=== PATIENT | male | born 1960 | race African-American/Black ===

== ENCOUNTER 2021-05-30 10:19 | Emergency (ER) | payer MEDICAID, OTHER ==
[~2021-05-30] VITALS: Ht 167.6 cm; Wt 65.8 kg
[2021-05-30 11:36] LABS: Basophils # (auto) 0.1 10 ^3/uL (0-0.2); Basophils % (auto) 1.1 % (0.0-2.0); Eosinophils # (auto) 0.2 10 ^3/uL (0-0.8); Eosinophils % (auto) 2.9 % (0.0-7.0); Hematocrit 42.1 % (41.0-53.0); Hemoglobin 14.3 g/dL (13.5-17.5); Lymphocytes # (auto) 3.1 10 ^3/uL (0.4-5.4); Mean Corpuscular Hemoglobin 28.9 pg (28.0-32.0); Mean Corpuscular Volume 84.9 fL (80.0-100.0); Monocytes # (auto) 0.6 10 ^3/uL (0-1.3); Monocytes % (auto) 9.5 % (0.0-12.0); Neutrophils # (auto) 2.7 10 ^3/uL (1.6-8.6); Neutrophils % (auto) 40.5 % (37.0-80.0); Nucleated Red Blood Cells % 0.3 %; Red Blood Cells 4.95 10^6/uL (4.5-5.90); Red Cell Distribution Width 14.5 % (11.8-14.3); White Blood Cell 6.7 10^3/uL (4.4-10.8)
[2021-05-30 11:55] LABS: Albumin 3.7 g/dL (3.4-5.0); Anion Gap 6 (5-15); Blood Urea Nitrogen 19 mg/dL (7-18); Calcium 8.6 mg/dL (8.5-10.1); Carbon Dioxide 25 mmol/L (21-32); Chloride 113 mmol/L (98-107); Glucose 110 mg/dL (74-106); Sodium 144 mmol/L (136-145)
[2021-05-30 12:00] LABS: Alanine Aminotransferase 18 U/L (16-61); Alkaline Phosphatase 104 U/L (45-117); Aspartate Aminotransferase 15 U/L (15-37); BUN/Creatinine Ratio 15.4; Bilirubin, Total 0.3 mg/dL (0.2-1.0); GFR African American 77 mL/min; GFR Non-African American 63 mL/min; Total Protein 7.6 g/dL (6.4-8.2)
[2021-05-30 12:18] LABS: Urine Bacteria NONE SEEN /hpf (None Seen); Urine Blood TRACE /uL (Negative); Urine Hyaline Cast FEW /lpf (0 - 2); Urine Mucus FEW (None Seen); Urine Specific Gravity 1.029 (1.001-1.035); Urine WBC 1 /hpf (0 - 3)
[2021-05-30 13:00] VITALS: BP 144/73
== END 2021-05-30 13:21 | disposition home or self-care (01) ==
LOC: ER 10:19
DX: D64.9 Anemia, unspecified (principal); E78.5 Hyperlipidemia, unspecified; I10 Essential (primary) hypertension
CPT/HCPCS: 36415; 71046; 80053; 81001; 84484; 85025; 93005

== ENCOUNTER 2021-11-03 22:21 | Inpatient (IN) | payer MEDICAID ==
[~2021-11-03] VITALS: Ht 167.6 cm; Wt 116.4 kg
[2021-11-03 23:03] LABS: Basophils # (auto) 0.1 10 ^3/uL (0-0.2); Basophils % (auto) 0.8 % (0.0-2.0); Eosinophils # (auto) 0.3 10 ^3/uL (0-0.8); Eosinophils % (auto) 3.6 % (0.0-7.0); Hematocrit 40.4 % (41.0-53.0); Hemoglobin 13.5 g/dL (13.5-17.5); Lymphocytes # (auto) 2.3 10 ^3/uL (0.4-5.4); Mean Corpuscular Hemoglobin 27.7 pg (28.0-32.0); Mean Corpuscular Hgb Conc. 33.4 g/dL (32.0-36.0); Mean Corpuscular Volume 82.9 fL (80.0-100.0); Monocytes # (auto) 1.1 10 ^3/uL (0-1.3); Neutrophils # (auto) 4.5 10 ^3/uL (1.6-8.6); Neutrophils % (auto) 54.6 % (37.0-80.0); Nucleated Red Blood Cells % 0.1 %; Red Blood Cells 4.87 10^6/uL (4.5-5.90); Red Cell Distribution Width 15.2 % (11.8-14.3); White Blood Cell 8.1 10^3/uL (4.4-10.8)
[2021-11-03 23:17] LABS: INR 1.05 (0.9-1.15); Partial Thromboplastin Time 27.3 sec (23.6-33.0)
[2021-11-03 23:20] LABS: Albumin 2.8 g/dL (3.4-5.0); Calcium 8.4 mg/dL (8.5-10.1); Potassium 4.7 mmol/L (3.5-5.1)
[2021-11-03 23:27] LABS: BUN/Creatinine Ratio 12.6; Bilirubin, Total 0.5 mg/dL (0.2-1.0); Total Protein 8.1 g/dL (6.4-8.2)
[2021-11-04] VITALS (8 sets, daily range): BP systolic 113–132; BP diastolic 62–82
[2021-11-04] MEDS ORDERED: FUROSEMIDE 40 MG/4 ML VIAL IV ONE
[2021-11-04] MEDS ORDERED: ACETAMINOPHEN 325 MG TAB PO PRN (01:30)
[2021-11-04] MEDS ORDERED: ASPirin 325 MG TAB PO ONE (01:30)
[2021-11-04] MEDS ORDERED: HYDROcodone-ACET 5/325MG TAB PO PRN (01:30)
[2021-11-04] MEDS ORDERED: ONDANSETRON HCL 4 MG/2 ML VIAL IV PRN (01:30)
[2021-11-04] MEDS ORDERED: hydrALAZINE HCL 10 MG TAB PO PRN (01:30)
[2021-11-04 06:37] LABS: Basophils # (auto) 0.1 10 ^3/uL (0-0.2); Basophils % (auto) 1.3 % (0.0-2.0); Eosinophils # (auto) 0.4 10 ^3/uL (0-0.8); Eosinophils % (auto) 4.6 % (0.0-7.0); Hematocrit 42.3 % (41.0-53.0); Hemoglobin 13.8 g/dL (13.5-17.5); Lymphocytes % (auto) 33.5 % (10.0-50.0); Mean Corpuscular Hemoglobin 27.1 pg (28.0-32.0); Mean Corpuscular Hgb Conc. 32.6 g/dL (32.0-36.0); Mean Corpuscular Volume 83.3 fL (80.0-100.0); Monocytes # (auto) 1.1 10 ^3/uL (0-1.3); Neutrophils # (auto) 4.2 10 ^3/uL (1.6-8.6); Neutrophils % (auto) 47.6 % (37.0-80.0); Nucleated Red Blood Cells % 0.4 %; Red Blood Cells 5.08 10^6/uL (4.5-5.90); Red Cell Distribution Width 15.3 % (11.8-14.3); White Blood Cell 8.8 10^3/uL (4.4-10.8)
[2021-11-04 06:44] LABS: Potassium 4.9 mmol/L (3.5-5.1)
[2021-11-04 06:56] LABS: Albumin 2.8 g/dL (3.4-5.0); BUN/Creatinine Ratio 12.9; Bilirubin, Total 0.4 mg/dL (0.2-1.0); Calcium 8.4 mg/dL (8.5-10.1); Total Protein 8.1 g/dL (6.4-8.2)
[2021-11-04] MEDS ORDERED: FUROSEMIDE 40 MG/4 ML VIAL IV SCH (10:00)
[2021-11-04] MEDS ORDERED: REMDESIVIR PER PHARMACY 0 ML IV SCH (14:45)
[2021-11-04] MEDS ORDERED: ACETAMINOPHEN 500 MG TAB PO PRN (14:45)
[2021-11-04] MEDS ORDERED: ATO40T PO (16:25)
[2021-11-04] MEDS ORDERED: DOCU100T15 PO (16:25)
[2021-11-04] MEDS ORDERED: METF-370 PO (16:25)
[2021-11-04] MEDS ORDERED: CARV12.544 PO (16:25)
[2021-11-04] MEDS ORDERED: ASPI-543 PO (16:25)
[2021-11-04] MEDS ORDERED: LISI-716 PO (16:25)
[2021-11-04] MEDS ORDERED: REMDESIVIR 200 MG in NS 210ml LOADING DOSE ADULT IV ONE (16:30)
[2021-11-04 17:05] LABS: Magnesium 2.7 mg/dL (1.6-2.6)
[2021-11-04 17:13] LABS: CRP High Sensitivity 13.9 mg/dL (< 0.3)
[2021-11-04 17:21] LABS: Thyroid Stimulating Hormone 0.92 uIU/mL (0.358-3.74)
[2021-11-04] MEDS: BUDESONIDE (INHALATION) 180 MCG IH IN SCH (18:31)
[2021-11-04] MEDS: ALBUTEROL SULF HFA 90MCG INH 200DOSE IN PRN (20:21)
[2021-11-04] MEDS: POTASSIUM CHLORIDE 8 MEQ TAB PO SCH (22:00)
[2021-11-04] MEDS: FUROSEMIDE 40 MG/4 ML VIAL IV SCH (22:07)
[2021-11-04] MEDS: DOXYCYCLINE 100MG/250ML 250 ML IV SCH (22:08)
[2021-11-04] MEDS: ENOXAPARIN SOD 40 MG/0.4 ML SYRINGE SC SCH (22:08)
[2021-11-05 05:07] VITALS: BP 103/52
[2021-11-05] MEDS: BUDESONIDE (INHALATION) 180 MCG IH IN SCH ×2 (06:10→22:00)
[2021-11-05] MEDS: ALBUTEROL SULF HFA 90MCG INH 200DOSE IN PRN ×2 (06:10→22:32)
[2021-11-05 06:53] LABS: Basophils # (auto) 0.1 10 ^3/uL (0-0.2); Basophils % (auto) 0.7 % (0.0-2.0); Eosinophils # (auto) 0.4 10 ^3/uL (0-0.8); Eosinophils % (auto) 6.2 % (0.0-7.0); Hematocrit 43.1 % (41.0-53.0); Hemoglobin 14.2 g/dL (13.5-17.5); Lymphocytes # (auto) 2.1 10 ^3/uL (0.4-5.4); Lymphocytes % (auto) 30.4 % (10.0-50.0); Mean Corpuscular Hemoglobin 27.3 pg (28.0-32.0); Mean Corpuscular Volume 82.8 fL (80.0-100.0); Monocytes # (auto) 0.7 10 ^3/uL (0-1.3); Monocytes % (auto) 10.9 % (0.0-12.0); Neutrophils # (auto) 3.5 10 ^3/uL (1.6-8.6); Neutrophils % (auto) 51.8 % (37.0-80.0); Nucleated Red Blood Cells % 0.2 %; Red Cell Distribution Width 15.5 % (11.8-14.3); White Blood Cell 6.8 10^3/uL (4.4-10.8)
[2021-11-05 07:11] LABS: Albumin 2.9 g/dL (3.4-5.0); Calcium 8.7 mg/dL (8.5-10.1); Potassium 4.5 mmol/L (3.5-5.1)
[2021-11-05 07:18] LABS: BUN/Creatinine Ratio 15.7; Bilirubin, Total 0.6 mg/dL (0.2-1.0); Total Protein 8.1 g/dL (6.4-8.2)
[2021-11-05 09:00] VITALS: BP 115/63
[2021-11-05] MEDS: DexAMETHasone SOD PHOS 10MG/1ML VIAL INJ IV SCH (09:40)
[2021-11-05] MEDS: FUROSEMIDE 40 MG/4 ML VIAL IV SCH ×2 (09:41→23:28)
[2021-11-05] MEDS: DOXYCYCLINE 100MG/250ML 250 ML IV SCH ×2 (09:41→23:29)
[2021-11-05] MEDS: ASCORBIC ACID 1,000 MG TAB PO SCH (09:42)
[2021-11-05] MEDS: ENOXAPARIN SOD 40 MG/0.4 ML SYRINGE SC SCH ×2 (09:42→23:29)
[2021-11-05] MEDS: CHOLECALCIFEROL (VITD3) 2,000 UNIT CAP/TAB PO SCH (09:42)
[2021-11-05] MEDS: ZINC SULFATE 220mg CAP or TAB PO SCH (09:42)
[2021-11-05] MEDS: POTASSIUM CHLORIDE 8 MEQ TAB PO SCH ×2 (09:43→23:29)
[2021-11-05] MEDS: IVERMECTIN 3 MG TAB PO SCH (11:33)
[2021-11-05 12:40] VITALS: BP 111/56
[2021-11-05] MEDS: REMDESIVIR 100mg 100 MG in SODIUM CHL 0.9% 230 ML IV SCH (14:53)
[2021-11-05 16:39] VITALS: BP 126/77
[2021-11-05 21:07] VITALS: BP 123/64
[2021-11-06 04:40] VITALS: BP 127/76
[2021-11-06 06:03] LABS: Potassium 5.1 mmol/L (3.5-5.1)
[2021-11-06 06:07] LABS: Albumin 2.8 g/dL (3.4-5.0); BUN/Creatinine Ratio 22.7; Calcium 8.7 mg/dL (8.5-10.1)
[2021-11-06 06:09] LABS: Bilirubin, Total 0.4 mg/dL (0.2-1.0); Total Protein 7.3 g/dL (6.4-8.2)
[2021-11-06] MEDS: ALBUTEROL SULF HFA 90MCG INH 200DOSE IN PRN ×2 (06:12→21:40)
[2021-11-06] MEDS: BUDESONIDE (INHALATION) 180 MCG IH IN SCH ×2 (06:12→21:40)
[2021-11-06 09:00] VITALS: BP 139/88
[2021-11-06] MEDS: IVERMECTIN 3 MG TAB PO SCH (10:00)
[2021-11-06] MEDS: DexAMETHasone SOD PHOS 10MG/1ML VIAL INJ IV SCH (10:21)
[2021-11-06] MEDS: FUROSEMIDE 40 MG/4 ML VIAL IV SCH ×2 (10:21→21:30)
[2021-11-06] MEDS: DOXYCYCLINE 100MG/250ML 250 ML IV SCH ×2 (10:22→21:30)
[2021-11-06] MEDS: ASCORBIC ACID 1,000 MG TAB PO SCH (10:22)
[2021-11-06] MEDS: POTASSIUM CHLORIDE 8 MEQ TAB PO SCH ×2 (10:22→21:30)
[2021-11-06] MEDS: CHOLECALCIFEROL (VITD3) 2,000 UNIT CAP/TAB PO SCH (10:22)
[2021-11-06] MEDS: ZINC SULFATE 220mg CAP or TAB PO SCH (10:22)
[2021-11-06] MEDS: ENOXAPARIN SOD 40 MG/0.4 ML SYRINGE SC SCH ×2 (10:23→21:31)
[2021-11-06 13:00] VITALS: BP 120/59
[2021-11-06] MEDS: REMDESIVIR 100mg 100 MG in SODIUM CHL 0.9% 230 ML IV SCH (14:58)
[2021-11-06 16:00] VITALS: BP 112/73
[2021-11-06] MEDS ORDERED: IOHEXOL 350 MG/ML 100ML IJ ONE (16:04)
[2021-11-06 22:00] VITALS: BP 109/69
[2021-11-07 05:00] VITALS: BP 123/83
[2021-11-07] MEDS: ALBUTEROL SULF HFA 90MCG INH 200DOSE IN PRN ×2 (05:51→20:51)
[2021-11-07] MEDS: BUDESONIDE (INHALATION) 180 MCG IH IN SCH ×2 (05:51→18:56)
[2021-11-07 06:28] LABS: Albumin 2.8 g/dL (3.4-5.0); BUN/Creatinine Ratio 28.4; Calcium 8.6 mg/dL (8.5-10.1)
[2021-11-07 06:31] LABS: Bilirubin, Total 0.4 mg/dL (0.2-1.0); Total Protein 7.1 g/dL (6.4-8.2)
[2021-11-07 07:56] LABS: Potassium 5.6 mmol/L (3.5-5.1)
[2021-11-07 09:00] VITALS: BP 117/68
[2021-11-07] MEDS: POTASSIUM CHLORIDE 8 MEQ TAB PO SCH ×2 (09:28→21:05)
[2021-11-07] MEDS: ZINC SULFATE 220mg CAP or TAB PO SCH (09:57)
[2021-11-07] MEDS: FUROSEMIDE 40 MG/4 ML VIAL IV SCH ×2 (09:57→22:48)
[2021-11-07] MEDS: DOXYCYCLINE 100MG/250ML 250 ML IV SCH ×2 (09:57→21:05)
[2021-11-07] MEDS: DexAMETHasone SOD PHOS 10MG/1ML VIAL INJ IV SCH (09:57)
[2021-11-07] MEDS: ENOXAPARIN SOD 40 MG/0.4 ML SYRINGE SC SCH ×2 (09:58→21:06)
[2021-11-07] MEDS: IVERMECTIN 3 MG TAB PO SCH (09:58)
[2021-11-07] MEDS: CHOLECALCIFEROL (VITD3) 2,000 UNIT CAP/TAB PO SCH (09:58)
[2021-11-07] MEDS: ASCORBIC ACID 1,000 MG TAB PO SCH (09:58)
[2021-11-07 13:00] VITALS: BP 117/79
[2021-11-07] MEDS: REMDESIVIR 100mg 100 MG in SODIUM CHL 0.9% 230 ML IV SCH (15:26)
[2021-11-07 17:03] VITALS: BP 103/63
[2021-11-07 22:00] VITALS: BP 128/79
[2021-11-08 05:00] VITALS: BP 120/69
[2021-11-08] MEDS: BUDESONIDE (INHALATION) 180 MCG IH IN SCH ×2 (06:24→22:28)
[2021-11-08] MEDS: ALBUTEROL SULF HFA 90MCG INH 200DOSE IN PRN (06:24)
[2021-11-08 07:20] LABS: Basophils # (auto) 0 10 ^3/uL (0-0.2); Basophils % (auto) 0.3 % (0.0-2.0); Eosinophils # (auto) 0 10 ^3/uL (0-0.8); Eosinophils % (auto) 0.3 % (0.0-7.0); Hematocrit 44.3 % (41.0-53.0); Hemoglobin 14.6 g/dL (13.5-17.5); Mean Corpuscular Hemoglobin 27.4 pg (28.0-32.0); Mean Corpuscular Hgb Conc. 32.9 g/dL (32.0-36.0); Mean Corpuscular Volume 83.3 fL (80.0-100.0); Monocytes # (auto) 1.5 10 ^3/uL (0-1.3); Monocytes % (auto) 12.6 % (0.0-12.0); Neutrophils # (auto) 7.5 10 ^3/uL (1.6-8.6); Neutrophils % (auto) 61.8 % (37.0-80.0); Nucleated Red Blood Cells % 0.1 %; Red Blood Cells 5.32 10^6/uL (4.5-5.90); Red Cell Distribution Width 14.9 % (11.8-14.3); White Blood Cell 12.1 10^3/uL (4.4-10.8)
[2021-11-08 07:28] LABS: Albumin 3.1 g/dL (3.4-5.0); Calcium 8.6 mg/dL (8.5-10.1); Potassium 5.2 mmol/L (3.5-5.1)
[2021-11-08 07:34] LABS: BUN/Creatinine Ratio 26.9; Bilirubin, Total 0.4 mg/dL (0.2-1.0); Total Protein 7.4 g/dL (6.4-8.2)
[2021-11-08 09:27] VITALS: BP 100/71
[2021-11-08] MEDS: FUROSEMIDE 40 MG/4 ML VIAL IV SCH ×2 (09:41→22:06)
[2021-11-08] MEDS: ZINC SULFATE 220mg CAP or TAB PO SCH (09:42)
[2021-11-08] MEDS: IVERMECTIN 3 MG TAB PO SCH (09:42)
[2021-11-08] MEDS: DexAMETHasone SOD PHOS 10MG/1ML VIAL INJ IV SCH (09:42)
[2021-11-08] MEDS: ASCORBIC ACID 1,000 MG TAB PO SCH (09:42)
[2021-11-08] MEDS: DOXYCYCLINE 100MG/250ML 250 ML IV SCH ×2 (09:42→21:33)
[2021-11-08] MEDS: POTASSIUM CHLORIDE 8 MEQ TAB PO SCH (09:43)
[2021-11-08] MEDS: ENOXAPARIN SOD 40 MG/0.4 ML SYRINGE SC SCH ×2 (09:43→21:33)
[2021-11-08] MEDS: CHOLECALCIFEROL (VITD3) 2,000 UNIT CAP/TAB PO SCH (09:43)
[2021-11-08 11:42] VITALS: BP 115/66
[2021-11-08] MEDS ORDERED: ALBUAER3 IN (15:31)
[2021-11-08] MEDS ORDERED: FURO1TAB33 PO (15:31)
[2021-11-08] MEDS ORDERED: DEXA6TAB6 PO (15:31)
[2021-11-08] MEDS ORDERED: CHOL1CAP47 PO (15:31)
[2021-11-08] MEDS ORDERED: ASCO10003 PO (15:31)
[2021-11-08] MEDS ORDERED: ZINC220C8 PO (15:31)
[2021-11-08] MEDS ORDERED: DOXY-332 PO (15:31)
[2021-11-08] MEDS: REMDESIVIR 100mg 100 MG in SODIUM CHL 0.9% 230 ML IV SCH (16:16)
[2021-11-08 16:44] VITALS: BP 123/76
[2021-11-08] MEDS: SODIUM ZIRCONIUM CYCL 10 GM PAK PO SCH (18:02)
[2021-11-08 22:00] VITALS: BP 107/69
[2021-11-09 05:00] VITALS: BP 134/84
[2021-11-09 09:00] VITALS: BP 105/53
[2021-11-09] MEDS: DexAMETHasone SOD PHOS 10MG/1ML VIAL INJ IV SCH (09:07)
[2021-11-09] MEDS: DOXYCYCLINE 100MG/250ML 250 ML IV SCH (09:07)
[2021-11-09] MEDS: FUROSEMIDE 40 MG/4 ML VIAL IV SCH (09:08)
[2021-11-09] MEDS: ZINC SULFATE 220mg CAP or TAB PO SCH (09:10)
[2021-11-09] MEDS: ENOXAPARIN SOD 40 MG/0.4 ML SYRINGE SC SCH (09:11)
[2021-11-09] MEDS: CHOLECALCIFEROL (VITD3) 2,000 UNIT CAP/TAB PO SCH (09:11)
[2021-11-09] MEDS: ASCORBIC ACID 1,000 MG TAB PO SCH (09:11)
[2021-11-09] MEDS: SODIUM ZIRCONIUM CYCL 10 GM PAK PO SCH (09:16)
[2021-11-09] MEDS: IVERMECTIN 3 MG TAB PO SCH (09:17)
[2021-11-09] MEDS: BUDESONIDE (INHALATION) 180 MCG IH IN SCH (09:22)
[2021-11-09] MEDS: ALBUTEROL SULF HFA 90MCG INH 200DOSE IN PRN (09:22)
== END 2021-11-09 12:30 | disposition hospice, home (50) | DRG 137 ==
LOC: ER 22:23 → TELE 11-04 01:29 → TELE-E-ADS 11-04 15:07 → TELE-EAST 11-08 08:11
PROVIDERS: ADMIT Nurse Practitioner Family; ATTEND Hospitalist
PROC: 5A09357 Assistance with Respiratory Ventilation, Less than 24 Consecutive Hours, Continuous Positive Airway Pressure (ICD-10-PCS; 2021-11-03)
PROC: XW033E5 Introduction of Remdesivir Anti-infective into Peripheral Vein, Percutaneous Approach, New Technology Group 5 (ICD-10-PCS; principal; 2021-11-05)
DX: U07.1 COVID-19 (principal); J96.01 Acute respiratory failure with hypoxia; J12.82 Pneumonia due to coronavirus disease 2019; I21.4 Non-ST elevation (NSTEMI) myocardial infarction; J44.0 Chronic obstructive pulmonary disease with (acute) lower respiratory infection; I50.9 Heart failure, unspecified; I11.0 Hypertensive heart disease with heart failure; E78.5 Hyperlipidemia, unspecified; I25.10 Atherosclerotic heart disease of native coronary artery without angina pectoris; R79.89 Other specified abnormal findings of blood chemistry; Z20.822 Contact with and (suspected) exposure to COVID-19; J98.11 Atelectasis; E66.01 Morbid (severe) obesity due to excess calories; Z68.36 Body mass index [BMI] 36.0-36.9, adult; Z95.5 Presence of coronary angioplasty implant and graft; Z23 Encounter for immunization
CPT/HCPCS: 36415; 36600; 71045; 71275; 76775; 80053; 82306; 82728; 82805; 83036; 83615; 83735; 83880; 84132; 84443; 84484; 85025; 85379; 85610; 85730; 86141; 87040; 87426; 93005; 93306; 93970; 94640; 94660; 96374; 96376; G0378; J1100; J3490

== ENCOUNTER 2023-01-13 12:39 | Inpatient (IN) | payer MEDICAID ==
[~2023-01-13] VITALS: Ht 167.6 cm; Wt 120.3 kg
[~2023-01-13 12:39] MED LIST: ALBUAER3 IN; ASCO10003 PO; ASPI-543 PO; ATO40T PO; CHOL1CAP47 PO; DEXA6TAB6 PO; DOCU100T15 PO; DOXY-332 PO; FURO1TAB33 PO; ZINC220C8 PO
[2023-01-13 13:29] LABS: Basophils # (auto) 0.1 10 ^3/uL (0-0.2); Basophils % (auto) 0.8 % (0.0-2.0); Eosinophils # (auto) 0.6 10 ^3/uL (0-0.8); Eosinophils % (auto) 7.9 % (0.0-7.0); Hematocrit 52.2 % (41.0-53.0); Lymphocytes # (auto) 2.1 10 ^3/uL (0.4-5.4); Lymphocytes % (auto) 28.7 % (10.0-50.0); Mean Corpuscular Hemoglobin 28.7 pg (28.0-32.0); Mean Corpuscular Hgb Conc. 32.6 g/dL (32.0-36.0); Monocytes # (auto) 0.8 10 ^3/uL (0-1.3); Monocytes % (auto) 11.2 % (0.0-12.0); Neutrophils # (auto) 3.8 10 ^3/uL (1.6-8.6); Neutrophils % (auto) 51.4 % (37.0-80.0); Nucleated Red Blood Cells % 0.1 %; Red Blood Cells 5.92 10^6/uL (4.5-5.90); Red Cell Distribution Width 15.6 % (11.8-14.3); White Blood Cell 7.4 10^3/uL (4.4-10.8)
[2023-01-13 13:51] LABS: Albumin 3.3 g/dL (3.4-5.0); Calcium 8.7 mg/dL (8.5-10.1); Magnesium 2.4 mg/dL (1.6-2.6); Potassium 4.3 mmol/L (3.5-5.1)
[2023-01-13 13:55] LABS: BUN/Creatinine Ratio 19.5
[2023-01-13 13:57] LABS: Bilirubin, Total 0.7 mg/dL (0.2-1.0); Total Protein 7.2 g/dL (6.4-8.2)
[2023-01-13] MEDS ORDERED: FUROSEMIDE 40 MG/4 ML VIAL IV ONE (14:45)
[2023-01-13] MEDS ORDERED: MORPHINE SULFATE INJ 2 MG/ml SYRG IV PRN ×2 (16:00)
[2023-01-13] MEDS ORDERED: ACETAMINOPHEN 325 MG TAB PO PRN (16:00)
[2023-01-13] MEDS ORDERED: NITROGLYCERIN 0.4 MG SL TAB SL PRN (16:00)
[2023-01-13] MEDS ORDERED: HYDROcodone-ACET 5/325MG TAB PO PRN (16:00)
[2023-01-13] MEDS ORDERED: PANTOPRAZOLE 40 MG/10 ML VIAL INJ IV ONE (16:15)
[2023-01-13] MEDS ORDERED: ALBUTEROL SULF 2.5 MG/0.5ML(0.5%) NEB SOLN NEB PRN (16:15)
[2023-01-13] MEDS ORDERED: IPRATROPIUM BROM 0.5 MG/2.5ML INH SOL NEB PRN (16:15)
[2023-01-13] MEDS: SODIUM CHLORIDE 0.9% 1,000 ML IV SCH (16:22)
[2023-01-13 16:34] LABS: Cholesterol 93 mg/dL (< 200)
[2023-01-13 16:36] LABS: HDL Cholesterol 27 mg/dL (40-59); LDL Cholesterol 59 mg/dL (< 100); Triglycerides 115 mg/dL (< 150)
[2023-01-13 17:50] LABS: Urine Bacteria NONE SEEN /hpf (None Seen); Urine Blood Negative /uL (Negative); Urine Hyaline Cast FEW /lpf (0 - 2); Urine Specific Gravity 1.011 (1.001-1.035); Urine WBC <1 /hpf (0 - 3)
[2023-01-13] MEDS: FUROSEMIDE 40 MG/4 ML VIAL IV SCH (18:06)
[2023-01-13] MEDS: IPRATROPIUM BROM 0.5 MG/2.5ML INH SOL NEB SCH (18:17)
[2023-01-13] MEDS: ALBUTEROL SULF 2.5 MG/0.5ML(0.5%) NEB SOLN NEB SCH (18:17)
[2023-01-13 19:47] VITALS: BP 122/66
[2023-01-13] MEDS: ENOXAPARIN SOD 150 MG/1 ML SYRINGE SC SCH (22:55)
[2023-01-14] MEDS: SODIUM CHLORIDE 0.9% 1,000 ML IV SCH (02:15)
[2023-01-14] MEDS: IPRATROPIUM BROM 0.5 MG/2.5ML INH SOL NEB SCH ×3 (06:13→18:27)
[2023-01-14] MEDS: ALBUTEROL SULF 2.5 MG/0.5ML(0.5%) NEB SOLN NEB SCH ×3 (06:13→18:27)
[2023-01-14] MEDS: FUROSEMIDE 40 MG/4 ML VIAL IV SCH ×2 (06:20→18:39)
[2023-01-14 09:15] LABS: Basophils # (auto) 0 10 ^3/uL (0-0.2); Basophils % (auto) 0.7 % (0.0-2.0); Eosinophils # (auto) 0.8 10 ^3/uL (0-0.8); Eosinophils % (auto) 11.8 % (0.0-7.0); Hematocrit 48.3 % (41.0-53.0); Hemoglobin 15.5 g/dL (13.5-17.5); Lymphocytes # (auto) 1.5 10 ^3/uL (0.4-5.4); Lymphocytes % (auto) 24.1 % (10.0-50.0); Mean Corpuscular Hemoglobin 28.1 pg (28.0-32.0); Mean Corpuscular Hgb Conc. 32.1 g/dL (32.0-36.0); Mean Corpuscular Volume 87.3 fL (80.0-100.0); Monocytes # (auto) 0.7 10 ^3/uL (0-1.3); Monocytes % (auto) 10.4 % (0.0-12.0); Neutrophils # (auto) 3.4 10 ^3/uL (1.6-8.6); Nucleated Red Blood Cells % 0.2 %; Red Blood Cells 5.53 10^6/uL (4.5-5.90); Red Cell Distribution Width 15.6 % (11.8-14.3); White Blood Cell 6.4 10^3/uL (4.4-10.8)
[2023-01-14 09:46] LABS: Albumin 2.9 g/dL (3.4-5.0); BUN/Creatinine Ratio 19.5; Calcium 8.3 mg/dL (8.5-10.1); Potassium 3.5 mmol/L (3.5-5.1)
[2023-01-14 09:48] LABS: Bilirubin, Total 0.7 mg/dL (0.2-1.0); Total Protein 7.1 g/dL (6.4-8.2)
[2023-01-14] MEDS ORDERED: ENOXAPARIN SOD 40 MG/0.4 ML SYRINGE SC SCH (10:00)
[2023-01-14] MEDS: PANTOPRAZOLE 40 MG/10 ML VIAL INJ IV SCH (12:03)
[2023-01-14] MEDS: ENOXAPARIN SOD 150 MG/1 ML SYRINGE SC SCH (12:03)
[2023-01-14] MEDS ORDERED: CARVEDILOL 3.125 MG TAB PO ONE (13:30)
[2023-01-14] MEDS ORDERED: ASPirin 81 mg TAB PO ONE (13:30)
[2023-01-14] MEDS: CARVEDILOL 3.125 MG TAB PO SCH (22:27)
[2023-01-14] MEDS: ATORVASTATIN 20 MG TAB PO SCH (22:28)
[2023-01-14] MEDS: POTASSIUM CHL 20 Meq TABLET PO SCH (22:28)
[2023-01-14 22:34] VITALS: BP 129/74
[2023-01-15] MEDS ORDERED: LISI-716 PO (04:58)
[2023-01-15] MEDS ORDERED: CARV12.544 PO (04:58)
[2023-01-15 05:00] VITALS: BP 130/81
[2023-01-15] MEDS: FUROSEMIDE 40 MG/4 ML VIAL IV SCH ×2 (05:33→18:00)
[2023-01-15] MEDS: ALBUTEROL SULF 2.5 MG/0.5ML(0.5%) NEB SOLN NEB SCH ×3 (07:03→19:00)
[2023-01-15] MEDS: IPRATROPIUM BROM 0.5 MG/2.5ML INH SOL NEB SCH ×3 (07:03→19:00)
[2023-01-15 07:10] LABS: BUN/Creatinine Ratio 19.4; Calcium 8.7 mg/dL (8.5-10.1); Potassium 4.8 mmol/L (3.5-5.1)
[2023-01-15 08:00] VITALS: BP 117/78
[2023-01-15] MEDS: POTASSIUM CHL 20 Meq TABLET PO SCH (09:11)
[2023-01-15] MEDS: ASPirin 81 mg TAB PO SCH (09:11)
[2023-01-15] MEDS: ENOXAPARIN SOD 40 MG/0.4 ML SYRINGE SC SCH (09:12)
[2023-01-15] MEDS: PANTOPRAZOLE 40 MG/10 ML VIAL INJ IV SCH (09:12)
[2023-01-15] MEDS: CARVEDILOL 3.125 MG TAB PO SCH ×2 (09:17→22:01)
[2023-01-15 12:00] VITALS: BP 117/77
[2023-01-15 16:00] VITALS: BP 116/76
[2023-01-15] MEDS: BUDESONIDE (INHALATION) 0.5 MG/2 ML NEB NEB SCH (19:00)
[2023-01-15 22:00] VITALS: BP 104/66
[2023-01-15] MEDS: POTASSIUM CHLORIDE 8 MEQ TAB PO SCH (22:01)
[2023-01-15] MEDS: ATORVASTATIN 20 MG TAB PO SCH (22:01)
[2023-01-16] VITALS (10 sets, daily range): BP systolic 107–144; BP diastolic 66–100
[2023-01-16] MEDS: FUROSEMIDE 40 MG/4 ML VIAL IV SCH (05:35)
[2023-01-16] MEDS: ALBUTEROL SULF 2.5 MG/0.5ML(0.5%) NEB SOLN NEB SCH ×3 (07:23→19:41)
[2023-01-16] MEDS: BUDESONIDE (INHALATION) 0.5 MG/2 ML NEB NEB SCH ×2 (07:23→19:41)
[2023-01-16] MEDS: IPRATROPIUM BROM 0.5 MG/2.5ML INH SOL NEB SCH ×3 (07:23→19:41)
[2023-01-16 07:27] LABS: Basophils # (auto) 0 10 ^3/uL (0-0.2); Basophils % (auto) 0.6 % (0.0-2.0); Eosinophils # (auto) 0.7 10 ^3/uL (0-0.8); Eosinophils % (auto) 10.1 % (0.0-7.0); Hematocrit 50.4 % (41.0-53.0); Hemoglobin 16.1 g/dL (13.5-17.5); Lymphocytes # (auto) 1.8 10 ^3/uL (0.4-5.4); Lymphocytes % (auto) 26.9 % (10.0-50.0); Mean Corpuscular Hemoglobin 28.2 pg (28.0-32.0); Mean Corpuscular Volume 88.1 fL (80.0-100.0); Monocytes # (auto) 0.6 10 ^3/uL (0-1.3); Monocytes % (auto) 9.9 % (0.0-12.0); Neutrophils # (auto) 3.4 10 ^3/uL (1.6-8.6); Neutrophils % (auto) 52.5 % (37.0-80.0); Nucleated Red Blood Cells % 0.1 %; Red Blood Cells 5.72 10^6/uL (4.5-5.90); Red Cell Distribution Width 15.3 % (11.8-14.3); White Blood Cell 6.5 10^3/uL (4.4-10.8)
[2023-01-16 07:40] LABS: INR 1.13 (0.9-1.15); Partial Thromboplastin Time 31.7 sec (24.6-33.4)
[2023-01-16 08:07] LABS: BUN/Creatinine Ratio 19.1; Calcium 8.8 mg/dL (8.5-10.1); Potassium 4.8 mmol/L (3.5-5.1)
[2023-01-16] MEDS: PANTOPRAZOLE 40 MG/10 ML VIAL INJ IV SCH (10:00)
[2023-01-16] MEDS: ENOXAPARIN SOD 40 MG/0.4 ML SYRINGE SC SCH (10:00)
[2023-01-16] MEDS: POTASSIUM CHLORIDE 8 MEQ TAB PO SCH ×2 (10:00→21:46)
[2023-01-16] MEDS: CARVEDILOL 3.125 MG TAB PO SCH ×2 (10:24→21:45)
[2023-01-16] MEDS: ASPirin 81 mg TAB PO SCH (10:24)
[2023-01-16] MEDS ORDERED: ANGIOMAX 250 MG VIAL IV ONE (15:33)
[2023-01-16] MEDS ORDERED: MIDAZOLAM HCL 2MG/2ML 2ml VIAL (1mg/ml) ONE (15:34)
[2023-01-16] MEDS ORDERED: HEPARIN SODIUM (PORCINE) 5000 UNITS/ML 1ML VIAL ONE (15:34)
[2023-01-16] MEDS ORDERED: fentaNYL CITRATE 100 MCG/2 ML VL ONE (15:34)
[2023-01-16] MEDS ORDERED: SODIUM CHL 0.9% 0 ML ONE (15:34)
[2023-01-16] MEDS ORDERED: VERAPAMIL 2.5MG/ML INJ 2ML VIAL IV ONE (15:35)
[2023-01-16] MEDS ORDERED: IOHEXOL 350 MG/ML 500ML BOTTLE IJ ONE (15:50)
[2023-01-16] MEDS ORDERED: LIDOCAINE 2%HCL (LOCAL ANESTH.) INJ 10ml MDV ONE (15:51)
[2023-01-16] MEDS ORDERED: NITROGLYCERIN 5MG/ML 10ML VIAL IV ONE (16:19)
[2023-01-16] MEDS ORDERED: SODIUM CHL 0.9% 50 ML ONE (16:22)
[2023-01-16] MEDS ORDERED: FUROSEMIDE 20 MG/2 ML VIAL ONE (16:54)
[2023-01-16] MEDS ORDERED: FUROSEMIDE 40 MG/4 ML VIAL IV ONE (17:00)
[2023-01-16] MEDS: ATORVASTATIN 20 MG TAB PO SCH (21:46)
[2023-01-16] MEDS: ACETYLCYSTEINE ORAL for CIN 20%(200MG/ML) 4ML PO SCH (21:47)
[2023-01-17 05:08] VITALS: BP 106/59
[2023-01-17] MEDS: BUDESONIDE (INHALATION) 0.5 MG/2 ML NEB NEB SCH ×2 (05:53→20:28)
[2023-01-17] MEDS: IPRATROPIUM BROM 0.5 MG/2.5ML INH SOL NEB SCH ×3 (05:53→20:28)
[2023-01-17] MEDS: ALBUTEROL SULF 2.5 MG/0.5ML(0.5%) NEB SOLN NEB SCH ×3 (05:53→20:28)
[2023-01-17 09:00] VITALS: BP 114/75
[2023-01-17] MEDS: ACETYLCYSTEINE ORAL for CIN 20%(200MG/ML) 4ML PO SCH ×2 (10:00→21:52)
[2023-01-17] MEDS: CARVEDILOL 3.125 MG TAB PO SCH ×2 (10:14→21:51)
[2023-01-17] MEDS: ASPirin 81 mg TAB PO SCH (10:15)
[2023-01-17] MEDS: POTASSIUM CHLORIDE 8 MEQ TAB PO SCH ×2 (10:15→21:51)
[2023-01-17] MEDS: FUROSEMIDE 40 MG/4 ML VIAL IV SCH (10:16)
[2023-01-17] MEDS: ENOXAPARIN SOD 40 MG/0.4 ML SYRINGE SC SCH (10:16)
[2023-01-17 13:00] VITALS: BP 95/55
[2023-01-17 14:36] LABS: Basophils # (auto) 0 10 ^3/uL (0-0.2); Basophils % (auto) 0.7 % (0.0-2.0); Eosinophils # (auto) 0.7 10 ^3/uL (0-0.8); Eosinophils % (auto) 10.8 % (0.0-7.0); Hematocrit 52.1 % (41.0-53.0); Hemoglobin 16.9 g/dL (13.5-17.5); Lymphocytes # (auto) 1.7 10 ^3/uL (0.4-5.4); Lymphocytes % (auto) 25.9 % (10.0-50.0); Mean Corpuscular Hgb Conc. 32.3 g/dL (32.0-36.0); Mean Corpuscular Volume 86.6 fL (80.0-100.0); Monocytes # (auto) 0.7 10 ^3/uL (0-1.3); Neutrophils # (auto) 3.5 10 ^3/uL (1.6-8.6); Neutrophils % (auto) 52.6 % (37.0-80.0); Nucleated Red Blood Cells % 0.4 %; Red Blood Cells 6.02 10^6/uL (4.5-5.90); Red Cell Distribution Width 15.3 % (11.8-14.3); White Blood Cell 6.6 10^3/uL (4.4-10.8)
[2023-01-17 14:42] LABS: Potassium 4.1 mmol/L (3.5-5.1)
[2023-01-17 14:44] LABS: BUN/Creatinine Ratio 20.1
[2023-01-17] MEDS: methylPREDNISolone SOD SUCC 40 MG/ML VL IV SCH ×2 (15:58→21:52)
[2023-01-17 17:00] VITALS: BP 114/72
[2023-01-17] MEDS: ATORVASTATIN 20 MG TAB PO SCH (21:51)
[2023-01-17 22:00] VITALS: BP_SYST 113; BP_SYST 115; BP_DIAS 63; BP_DIAS 69
[2023-01-18 05:00] VITALS: BP 106/71
[2023-01-18] MEDS: methylPREDNISolone SOD SUCC 40 MG/ML VL IV SCH ×3 (05:25→21:17)
[2023-01-18] MEDS: IPRATROPIUM BROM 0.5 MG/2.5ML INH SOL NEB SCH ×3 (06:00→19:18)
[2023-01-18 06:38] LABS: Basophils # (auto) 0 10 ^3/uL (0-0.2); Eosinophils # (auto) 0 10 ^3/uL (0-0.8); Eosinophils % (auto) 0.1 % (0.0-7.0); Hematocrit 51.8 % (41.0-53.0); Hemoglobin 17.1 g/dL (13.5-17.5); Lymphocytes % (auto) 14.2 % (10.0-50.0); Mean Corpuscular Hemoglobin 28.8 pg (28.0-32.0); Mean Corpuscular Volume 87.2 fL (80.0-100.0); Monocytes # (auto) 0.2 10 ^3/uL (0-1.3); Monocytes % (auto) 2.9 % (0.0-12.0); Neutrophils # (auto) 5.7 10 ^3/uL (1.6-8.6); Neutrophils % (auto) 82.8 % (37.0-80.0); Nucleated Red Blood Cells % 0.2 %; Red Blood Cells 5.94 10^6/uL (4.5-5.90); White Blood Cell 6.9 10^3/uL (4.4-10.8)
[2023-01-18 06:49] LABS: Potassium 4.3 mmol/L (3.5-5.1)
[2023-01-18 06:54] LABS: BUN/Creatinine Ratio 25.2; Calcium 9.1 mg/dL (8.5-10.1)
[2023-01-18] MEDS: ALBUTEROL SULF 2.5 MG/0.5ML(0.5%) NEB SOLN NEB SCH ×3 (07:12→19:18)
[2023-01-18 10:00] VITALS: BP_SYST 128; BP_DIAS 81; BP_DIAS 88
[2023-01-18] MEDS: BUDESONIDE (INHALATION) 0.5 MG/2 ML NEB NEB SCH ×2 (10:00→19:18)
[2023-01-18] MEDS: ACETYLCYSTEINE ORAL for CIN 20%(200MG/ML) 4ML PO SCH (10:00)
[2023-01-18] MEDS: FUROSEMIDE 40 MG/4 ML VIAL IV SCH (10:24)
[2023-01-18] MEDS: ASPirin 81 mg TAB PO SCH (10:24)
[2023-01-18] MEDS: ENOXAPARIN SOD 40 MG/0.4 ML SYRINGE SC SCH (10:24)
[2023-01-18] MEDS: POTASSIUM CHLORIDE 8 MEQ TAB PO SCH ×2 (10:25→21:16)
[2023-01-18] MEDS: CARVEDILOL 3.125 MG TAB PO SCH ×2 (10:25→21:17)
[2023-01-18 17:00] VITALS: BP 131/88
[2023-01-18] MEDS ORDERED: IOHEXOL 350 MG/ML 100ML IJ ONE (20:44)
[2023-01-18] MEDS: RANOLAZINE ER 500 MG TAB PO SCH (21:15)
[2023-01-18] MEDS: ATORVASTATIN 20 MG TAB PO SCH (21:16)
[2023-01-18 22:00] VITALS: BP 115/69
[2023-01-19 05:00] VITALS: BP 114/66
[2023-01-19] MEDS: methylPREDNISolone SOD SUCC 40 MG/ML VL IV SCH ×3 (05:25→22:03)
[2023-01-19] MEDS: ALBUTEROL SULF 2.5 MG/0.5ML(0.5%) NEB SOLN NEB SCH ×3 (07:06→19:05)
[2023-01-19] MEDS: IPRATROPIUM BROM 0.5 MG/2.5ML INH SOL NEB SCH ×3 (07:06→19:05)
[2023-01-19 07:39] LABS: Amphetamine Screen, Urine NEGATIVE (NEGATIVE); Barbiturate Scree,Urine NEGATIVE (NEGATIVE); Benzodiazephine Screen, Urine NEGATIVE (NEGATIVE); Cannabinoid Screen, Urine NEGATIVE (NEGATIVE); Cocaine Screen, Urine NEGATIVE (NEGATIVE); Opiate Scree,Urine NEGATIVE (NEGATIVE); Phencyclidine Screen, Urine NEGATIVE (NEGATIVE)
[2023-01-19 07:50] VITALS: BP 134/70
[2023-01-19] MEDS: ENOXAPARIN SOD 40 MG/0.4 ML SYRINGE SC SCH (08:40)
[2023-01-19] MEDS: ASPirin 81 mg TAB PO SCH (08:40)
[2023-01-19] MEDS: RANOLAZINE ER 500 MG TAB PO SCH ×2 (08:40→22:03)
[2023-01-19] MEDS: FUROSEMIDE 40 MG/4 ML VIAL IV SCH (08:41)
[2023-01-19] MEDS: CLOPIDOGREL BISULFATE 75 MG TAB PO SCH (08:41)
[2023-01-19] MEDS: CARVEDILOL 3.125 MG TAB PO SCH ×2 (08:41→22:03)
[2023-01-19] MEDS: POTASSIUM CHLORIDE 8 MEQ TAB PO SCH ×2 (08:41→22:03)
[2023-01-19] MEDS: BUDESONIDE (INHALATION) 0.5 MG/2 ML NEB NEB SCH ×2 (11:30→19:06)
[2023-01-19 12:35] VITALS: BP 133/98
[2023-01-19] MEDS: DOBUTamine 1000MCG/ML 250 ML IV SCH (14:04)
[2023-01-19 18:02] VITALS: BP_SYST 134; BP_SYST 142; BP_DIAS 70; BP_DIAS 95
[2023-01-19 22:00] VITALS: BP 135/92
[2023-01-19] MEDS: ATORVASTATIN 20 MG TAB PO SCH (22:03)
[2023-01-20] VITALS (7 sets, daily range): BP systolic 117–137; BP diastolic 73–95
[2023-01-20] MEDS: DOBUTamine 1000MCG/ML 250 ML IV SCH ×2 (03:44→17:53)
[2023-01-20] MEDS: methylPREDNISolone SOD SUCC 40 MG/ML VL IV SCH ×3 (05:39→22:08)
[2023-01-20] MEDS: ALBUTEROL SULF 2.5 MG/0.5ML(0.5%) NEB SOLN NEB SCH ×3 (06:44→19:14)
[2023-01-20] MEDS: IPRATROPIUM BROM 0.5 MG/2.5ML INH SOL NEB SCH ×3 (06:44→19:14)
[2023-01-20] MEDS: BUDESONIDE (INHALATION) 0.5 MG/2 ML NEB NEB SCH ×2 (06:45→19:14)
[2023-01-20] MEDS: RANOLAZINE ER 500 MG TAB PO SCH ×2 (08:44→22:08)
[2023-01-20] MEDS: ENOXAPARIN SOD 40 MG/0.4 ML SYRINGE SC SCH (08:44)
[2023-01-20] MEDS: CLOPIDOGREL BISULFATE 75 MG TAB PO SCH (08:44)
[2023-01-20] MEDS: ASPirin 81 mg TAB PO SCH (08:44)
[2023-01-20] MEDS: FUROSEMIDE 40 MG/4 ML VIAL IV SCH (08:44)
[2023-01-20] MEDS: CARVEDILOL 3.125 MG TAB PO SCH ×2 (08:44→22:10)
[2023-01-20] MEDS: POTASSIUM CHLORIDE 8 MEQ TAB PO SCH ×2 (08:45→22:09)
[2023-01-20] MEDS: ATORVASTATIN 20 MG TAB PO SCH (22:08)
[2023-01-21 05:00] VITALS: BP 132/79
[2023-01-21 05:39] LABS: Basophils # (auto) 0 10 ^3/uL (0-0.2); Basophils % (auto) 0.1 % (0.0-2.0); Eosinophils # (auto) 0 10 ^3/uL (0-0.8)
[2023-01-21 05:42] LABS: Hemoglobin 17.4 g/dL (13.5-17.5); Lymphocytes # (auto) 0.9 10 ^3/uL (0.4-5.4); Lymphocytes % (auto) 6.5 % (10.0-50.0); Mean Corpuscular Hemoglobin 27.8 pg (28.0-32.0); Mean Corpuscular Hgb Conc. 32.2 g/dL (32.0-36.0); Mean Corpuscular Volume 86.3 fL (80.0-100.0); Monocytes % (auto) 6.8 % (0.0-12.0); Neutrophils # (auto) 12.3 10 ^3/uL (1.6-8.6); Neutrophils % (auto) 86.6 % (37.0-80.0); Nucleated Red Blood Cells % 0.3 %; Red Blood Cells 6.26 10^6/uL (4.5-5.90); Red Cell Distribution Width 15.3 % (11.8-14.3); White Blood Cell 14.2 10^3/uL (4.4-10.8)
[2023-01-21] MEDS: methylPREDNISolone SOD SUCC 40 MG/ML VL IV SCH ×3 (05:43→21:10)
[2023-01-21 06:17] LABS: BUN/Creatinine Ratio 29.4; Calcium 8.4 mg/dL (8.5-10.1); Potassium 4.8 mmol/L (3.5-5.1)
[2023-01-21] MEDS: IPRATROPIUM BROM 0.5 MG/2.5ML INH SOL NEB SCH ×3 (07:05→19:01)
[2023-01-21] MEDS: BUDESONIDE (INHALATION) 0.5 MG/2 ML NEB NEB SCH ×2 (07:05→19:01)
[2023-01-21] MEDS: ALBUTEROL SULF 2.5 MG/0.5ML(0.5%) NEB SOLN NEB SCH ×3 (07:05→19:01)
[2023-01-21 08:36] VITALS: BP 143/91
[2023-01-21] MEDS: DOBUTamine 1000MCG/ML 250 ML IV SCH ×2 (09:07→22:50)
[2023-01-21] MEDS: FUROSEMIDE 40 MG/4 ML VIAL IV SCH (09:08)
[2023-01-21] MEDS: ENOXAPARIN SOD 40 MG/0.4 ML SYRINGE SC SCH (09:08)
[2023-01-21] MEDS: RANOLAZINE ER 500 MG TAB PO SCH ×2 (09:08→21:23)
[2023-01-21] MEDS: ASPirin 81 mg TAB PO SCH (09:08)
[2023-01-21] MEDS: CLOPIDOGREL BISULFATE 75 MG TAB PO SCH (09:09)
[2023-01-21] MEDS: POTASSIUM CHLORIDE 8 MEQ TAB PO SCH ×2 (09:09→21:13)
[2023-01-21] MEDS: CARVEDILOL 3.125 MG TAB PO SCH ×2 (09:10→21:11)
[2023-01-21 12:34] VITALS: BP 156/90
[2023-01-21 16:19] VITALS: BP 153/107
[2023-01-21] MEDS: ATORVASTATIN 20 MG TAB PO SCH (21:11)
[2023-01-21 22:00] VITALS: BP 150/96
[2023-01-22 05:00] VITALS: BP 145/77
[2023-01-22] MEDS: methylPREDNISolone SOD SUCC 40 MG/ML VL IV SCH ×3 (06:16→21:56)
[2023-01-22] MEDS: IPRATROPIUM BROM 0.5 MG/2.5ML INH SOL NEB SCH ×3 (06:56→18:39)
[2023-01-22] MEDS: ALBUTEROL SULF 2.5 MG/0.5ML(0.5%) NEB SOLN NEB SCH ×3 (06:56→18:39)
[2023-01-22] MEDS: ENOXAPARIN SOD 40 MG/0.4 ML SYRINGE SC SCH (08:43)
[2023-01-22] MEDS: CLOPIDOGREL BISULFATE 75 MG TAB PO SCH (08:44)
[2023-01-22] MEDS: ASPirin 81 mg TAB PO SCH (08:44)
[2023-01-22] MEDS: RANOLAZINE ER 500 MG TAB PO SCH ×2 (08:44→21:55)
[2023-01-22] MEDS: FUROSEMIDE 40 MG/4 ML VIAL IV SCH (08:44)
[2023-01-22] MEDS: CARVEDILOL 3.125 MG TAB PO SCH ×2 (08:44→21:55)
[2023-01-22] MEDS: POTASSIUM CHLORIDE 8 MEQ TAB PO SCH (08:45)
[2023-01-22 08:47] VITALS: BP 144/100
[2023-01-22] MEDS: BUDESONIDE (INHALATION) 0.5 MG/2 ML NEB NEB SCH ×2 (12:28→18:39)
[2023-01-22 13:00] VITALS: BP 149/98
[2023-01-22] MEDS ORDERED: CAR3125T PO (15:35)
[2023-01-22] MEDS ORDERED: ALB5IS NEB (15:35)
[2023-01-22] MEDS ORDERED: POTA8TAB2 PO (15:35)
[2023-01-22] MEDS ORDERED: RANO500T PO (15:35)
[2023-01-22] MEDS ORDERED: CLOP75TA70 PO (15:35)
[2023-01-22] MEDS ORDERED: PRED20TA2 PO (15:35)
[2023-01-22] MEDS ORDERED: BUMEX2MG PO (15:35)
[2023-01-22] MEDS ORDERED: SILD20TA PO (15:35)
[2023-01-22] MEDS ORDERED: IPR002IS NEB (15:35)
[2023-01-22] MEDS ORDERED: BUME2TAB5 PO (15:36)
[2023-01-22] MEDS ORDERED: ATO40T PO (15:36)
[2023-01-22 16:34] VITALS: BP 145/101
[2023-01-22 20:00] VITALS: BP 139/99
[2023-01-22] MEDS: SILDENAFIL CITRATE 20 MG TAB PO SCH (21:12)
[2023-01-22] MEDS: ATORVASTATIN 20 MG TAB PO SCH (21:55)
[2023-01-22 22:00] VITALS: BP 139/99
[2023-01-23 02:42] VITALS: BP 139/99
[2023-01-23 05:00] VITALS: BP 125/87
[2023-01-23] MEDS: methylPREDNISolone SOD SUCC 40 MG/ML VL IV SCH ×2 (05:46→14:28)
[2023-01-23] MEDS: IPRATROPIUM BROM 0.5 MG/2.5ML INH SOL NEB SCH ×2 (07:12→13:33)
[2023-01-23] MEDS: ALBUTEROL SULF 2.5 MG/0.5ML(0.5%) NEB SOLN NEB SCH (07:12)
[2023-01-23] MEDS: BUDESONIDE (INHALATION) 0.5 MG/2 ML NEB NEB SCH (07:24)
[2023-01-23 08:15] LABS: Anion Gap 9 (5-15); Carbon Dioxide 23 mmol/L (21-32); Chloride 101 mmol/L (98-107); Potassium 5.1 mmol/L (3.5-5.1); Sodium 133 mmol/L (136-145)
[2023-01-23 08:16] LABS: Blood Urea Nitrogen 45 mg/dL (7-18); Calcium 8.2 mg/dL (8.5-10.1); GFR African American 58 mL/min; GFR Non-African American 48 mL/min; Glucose 277 mg/dL (74-106)
[2023-01-23] MEDS: ASPirin 81 mg TAB PO SCH (09:08)
[2023-01-23] MEDS: SILDENAFIL CITRATE 20 MG TAB PO SCH ×2 (09:08→14:28)
[2023-01-23] MEDS: RANOLAZINE ER 500 MG TAB PO SCH (09:08)
[2023-01-23] MEDS: CLOPIDOGREL BISULFATE 75 MG TAB PO SCH (09:10)
[2023-01-23] MEDS: CARVEDILOL 3.125 MG TAB PO SCH (09:10)
[2023-01-23] MEDS: ENOXAPARIN SOD 40 MG/0.4 ML SYRINGE SC SCH (09:10)
[2023-01-23] MEDS: FUROSEMIDE 40 MG/4 ML VIAL IV SCH (09:11)
[2023-01-23] MEDS ORDERED: POTASSIUM CHLORIDE 8 MEQ TAB PO SCH (10:00)
[2023-01-23 10:04] VITALS: BP 135/95
[2023-01-23 13:30] VITALS: BP 137/89
[2023-01-23 14:51] VITALS: BP 137/89
== END 2023-01-23 16:54 | disposition home or self-care (01) | DRG 192 ==
LOC: ER 12:39 → TELE 15:54 → TELE-WESTW 01-14 21:34
PROVIDERS: ADMIT Registered Nurse; ATTEND Hospitalist
PROC: B2111ZZ Fluoroscopy of Multiple Coronary Arteries using Low Osmolar Contrast (ICD-10-PCS; principal; 2023-01-16)
DX: I13.0 Hypertensive heart and chronic kidney disease with heart failure and stage 1 through stage 4 chronic kidney disease, or unspecified chronic kidney disease (principal); J96.21 Acute and chronic respiratory failure with hypoxia; I27.20 Pulmonary hypertension, unspecified; N17.9 Acute kidney failure, unspecified; E11.22 Type 2 diabetes mellitus with diabetic chronic kidney disease; D64.9 Anemia, unspecified; I50.43 Acute on chronic combined systolic (congestive) and diastolic (congestive) heart failure; E66.01 Morbid (severe) obesity due to excess calories; Z20.822 Contact with and (suspected) exposure to COVID-19; N18.32 Chronic kidney disease, stage 3b; E78.5 Hyperlipidemia, unspecified; I25.10 Atherosclerotic heart disease of native coronary artery without angina pectoris; J44.9 Chronic obstructive pulmonary disease, unspecified; J84.9 Interstitial pulmonary disease, unspecified; J98.11 Atelectasis; Z79.84 Long term (current) use of oral hypoglycemic drugs; Z68.41 Body mass index [BMI] 40.0-44.9, adult; Z82.3 Family history of stroke; Z86.16 Personal history of COVID-19; Z87.891 Personal history of nicotine dependence; Z95.5 Presence of coronary angioplasty implant and graft; Z99.81 Dependence on supplemental oxygen; I25.2 Old myocardial infarction
CPT/HCPCS: 36415; 36600; 71045; 71275; 78582; 80048; 80053; 80061; 80307; 81001; 82805; 83036; 83605; 83735; 83880; 84443; 84484; 85025; 85379; 85610; 85730; 86850; 86900; 86901; 87040; 87426; 93005; 93306; 93454; 93970; 94640; 96374; 97116; 97163; C9113; G0378; J2001; J2250; J3490